=== PATIENT | female | born 2000 ===

== ENCOUNTER 2021-12-27 05:16 | Emergency (ER) | payer SELFPAY ==
--- NOTE | 2021-12-27 05:36 | ED GU-Female ---
General Chief Complaint: Abdominal/GI Problems Stated Complaint: 7 WKS PREG,VAG BLEEDING,ABD PAIN Nursing Triage Note: TO ED VIA [facility] FROM [facility] ER TRANSFER FOR ULTRASOUND. PT IS APPROX 7 WEEKS AND WAS EXPERIENCING VAGINAL BLEEDING AND PAIN. LMP WAS THE FIRST WEEK OF OCTOBER. PAIN STARTED LAST NIGHT APPROX 0030. Source: patient (VIA LANGUAGE LINE TECH BRAZER TESTER), translator/interpreter (KRUNAL MONIQUE DO) History of Present Illness Date Seen by Provider: Dec 27, 2021 Time Seen by Provider: 05:17 Initial Comments PT ARRIVES VIA [facility] EMS IN TRANSFER FROM [facility] ER PT IS APPROXIMATELY 7 WEEKS --LMP FIRST WEEK OF OCTOBER HAD + TEST 4 WEEKS AGO. BEGAN HAVING SOME BLEEDING 1 WEEK AGO, AND WAS SEEN AT [facility] THIS PAST WEEK AND DX WITH UTI. REPORTEDLY HAS A FIRST OB APPOINTMENT AT [facility] THIS MONDAY. PT BEGAN HAVING SEVERE PAIN AND HEAVY BLEEDING WITH CLOTS TONIGHT AROUND 0030 AND WENT TO [facility] ER. SENT HERE FOR ULTRASOUND, THEY DO NOT HAVE ULTRASOUND AVAILABILITY AT THIS TIME. BP THERE WAS IN 70'S TO 90'S SYSTOLIC. PT WAS GIVEN IV FLUIDS AND FENTANYL FOR PAIN ON ARRIVAL, BP IS 106/60, HR 86, O2 SAT 98% ON ROOM AIR. PAIN IS IMPROVED AT THIS TIME. PELVIC EXAM WAS DONE BY ER PHYSICIAN AT [facility] AND WAS REPORTED THAT THERE WAS A LARGE AMOUNT OF CLOTS ON EXAM. VERBAL REPORT OF QUANT B-HCG DONE THERE WAS 12,444 PT IS AB 0 NO CHRONIC MEDICAL PROBLEMS NO PRIOR SURGERIES PCP: [facility] (KRUNAL MONIQUE DO) Allergies and Home Medications Allergies Coded Allergies: No Known Drug Allergies (Unverified , 12/27/21) Patient Home Medication List Home Medication List Reviewed: Yes (KRUNAL MONIQUE DO) Ondansetron (Ondansetron Odt) 4 Mg Tab.rapdis, 4 MG PO Q8H PRN for nausea Prescribed by: LEANN BERNSTEIN on 12/27/21 0631 Review of Systems Review of Systems Constitutional: no symptoms reported Respiratory: no symptoms reported Cardiovascular: no symptoms reported Gastrointestinal: see HPI Genitourinary: see HPI : Yes LMP: Oct 26, 2021 Musculoskeletal: no symptoms reported Skin: no symptoms reported Psychiatric/Neurological: No Symptoms Reported Endocrine: No Symptoms Reported Hematologic/Lymphatic: No Symptoms Reported (KRUNAL MONIQUE DO) Past Agpired-Vtoffk-Whwxqo Hx Patient Social History Tobacco Use?: No Substance use?: No Alcohol Use?: No (KRUNAL MONIQUE DO) Past Medical History Surgeries: No Respiratory: No Cardiac: No Neurological: No : Yes Last Menstrual Period: Oct 26, 2021 Hx : 2 Hx Para: 1 Hx Total # of Abortions (Sp): 0 Reproductive Disorders: No Genitourinary: No Gastrointestinal: No Musculoskeletal: No Endocrine: No HEENT: No Cancer: No Psychosocial: No Integumentary: No Blood Disorders: No (KRUNAL MONIQUE DO) Physical Exam Vital Signs Vital Signs - First Documented (LEANN BERNSTEIN MD) Vital Signs Capillary Refill : Less Than 3 Seconds (KRUNAL MONIQUE DO) Height, Weight, BMI Height: '" Weight: lbs. oz. kg; BMI Method: General Appearance: WD/WN, no apparent distress, thin, other (DOES NOT APPEAR TO BE IN ANY DISCOMFORT OR DISTRESS AT THIS TIME.) Cardiovascular: regular rate, rhythm, no murmur Respiratory: normal breath sounds, no respiratory distress, no accessory muscle use Gastrointestinal: soft Back: no CVA tenderness Extremities: normal inspection, normal capillary refill Neurologic/Psychiatric: no motor/sensory deficits, alert, normal mood/affect, oriented x 3 Skin: normal color (PT IS ) (KRUNAL MONIQUE DO) General Appearance: WD/WN, no apparent distress Gastrointestinal: normal bowel sounds, soft, tenderness (minimal suprapubic tenderness) Pelvic: normal external exam Extremities: normal range of motion, normal inspection, normal capillary refill Neurologic/Psychiatric: alert, normal mood/affect, oriented x 3, other (tearful and upset when advised of ultrasound findings) (LEANN BERNSTEIN MD) Progress/Results/Core Measures Suspected Sepsis SIRS Temperature: Pulse: 82 Respiratory Rate: 16 Laboratory Tests 12/27/21 05:30: White Blood Count 12.0H Blood Pressure 106 /60 Mean: 75 Laboratory Tests 12/27/21 05:30: Platelet Count 193 (KRUNAL MONIQUE DO) Results/Orders Lab Results Laboratory Tests Test 12/27/21 05:30 12/27/21 06:05 12/27/21 06:39 Range/Units White Blood Count 12.0 H 4.3-11.0 10^3/uL Red Blood Count 3.95 3.80-5.11 10^6/uL Hemoglobin 12.3 11.5-16.0 g/dL Hematocrit 36 35-52 % Mean Corpuscular Volume 91 80-99 fL Mean Corpuscular Hemoglobin 31 25-34 pg Mean Corpuscular Hemoglobin Concent 34 32-36 g/dL Red Cell Distribution Width 12.7 10.0-14.5 % Platelet Count 193 130-400 10^3/uL Mean Platelet Volume 10.0 9.0-12.2 fL Human Chorionic Gonadotropin, Quant 18720 H <5 MIU/ML Urine Color YELLOW Urine Clarity CLEAR Urine pH 7.0 5-9 Urine Specific [place] 1.010 L 1.016-1.022 Urine Protein NEGATIVE NEGATIVE Urine Glucose (UA) NEGATIVE NEGATIVE Urine Ketones NEGATIVE NEGATIVE Urine Nitrite NEGATIVE NEGATIVE Urine Bilirubin NEGATIVE NEGATIVE Urine Urobilinogen 0.2 < = 1.0 MG/DL Urine Leukocyte Esterase NEGATIVE NEGATIVE Urine RBC (Auto) NEGATIVE NEGATIVE Urine RBC NONE /HPF Urine WBC NONE /HPF Urine Squamous Epithelial Cells 0-2 /HPF Urine Crystals NONE /LPF Urine Bacteria NEGATIVE /HPF Urine Casts NONE /LPF Urine Mucus NEGATIVE /LPF Urine Culture Indicated NO (LEANN BERNSTEIN MD) My Orders Orders - LEANN BERNSTEIN MD Ondansetron Injection (Zofran Injectio (12/27/21 06:30) Orthostatic Vital Signs (Adult (12/27/21 06:22) Ua Culture If Indicated (12/27/21 06:40) Straight Cath For Spec.-Adult (12/27/21 06:42) (LEANN BERNSTEIN MD) Medications Given in ED Current Medications Medications Dose Ordered Sig/Juan Route Start Time Stop Time Status Last Admin Dose Admin Ondansetron HCl 4 mg ONCE ONCE IVP 12/27/21 06:30 12/27/21 06:31 DC 12/27/21 06:26 4 MG (LEANN BERNSTEIN MD) Vital Signs/I&O 12/27/21 12/27/21 12/27/21 05:20 05:20 06:26 Temp 36.7 Pulse 82 75 77 73 Resp 16 B/P (MAP) 106/60 (75) 97/60 (72) 98/59 (72) 95/64 (74) Pulse Ox 97 O2 Delivery Room Air Room Air (LEANN BERNSTEIN MD) Vital Signs/I&O Capillary Refill : Less Than 3 Seconds (KRUNAL MONIQUE DO) Blood Pressure Mean: 75 Progress Note : Progress Note KNOCKUP WORKER IS HERE ON PT'S ARRIVAL, AND PT IMMEDIATELY TAKEN TO ULTRASOUND. BLOOD TYPE O+ 0600--CARE TURNED OVER TO DR. BERNSTEIN, LAB AND ULTRASOUND RESULTS PENDING. (KRUNAL MONIQUE DO) Progress Note : Time: 06:40 Progress Note Patient care assumed at shift change. Patient is resting comfortably, rates her pain at about a "1". printer repair technician communicated with myself and Dr. Herrera noted that she did not see any viable intrauterine . She saw significant amount of debris in the cervix. No free fluid in the pelvis. Adnexa are clear, no masses or suspicion for ectopic . Patent flow to the ovaries bilaterally. Patient does complain of a little nausea. Straight cath urine is obtained. CBC is reviewed and unremarkable. Awaiting final radiology read. We will have the patient follow-up with a repeat quantitative hCG in 2 days and with her costume mistress/OB. (LEANN BERNSTEIN MD) Diagnostic Imaging Diagonstic Imaging: Ultrasound Plain Films/CT/US/NM/MRI: pelvis Comments [facility] [place] NAME: PALOMA BOOKER [employer] REC#: [id number] PT STATUS: REG ER : 2000 PHYSICIAN: KRUNAL MONIQUE DO ADMIT DATE: 12/27/21/ER Draft Date of Exam:12/27/21 US OB<14 WKS SNGLE W/TRANSVAG INDICATION: Early , vaginal bleeding, ectopic pelvic pain. COMPARISON: None. FINDINGS: Transpelvic transvaginal ultrasound images were obtained. There is no visible formed intra or extrauterine gestational sac. There is debris material within the endometrial canal within the endocervix. The ovaries and adnexa are normal. There was no free fluid. No ovarian torsion or mass is seen. IMPRESSION: No identifiable intrauterine or extrauterine gestation. There is fluid and debris within the endocervical canal. Follow-up imaging with serial hCGs are recommended. Dictated on workstation # [id number] Dict: 12/27/2137 Trans: 12/27/21 0653 [facility] [id number] Interpreted by: SOPHIA MCHUGH Electronically signed by: (LEANN BERNSTEIN MD) Departure Impression Primary Impression: Miscarriage Disposition: 01 HOME, SELF-CARE Condition: Stable Departure-Patient Inst. Decision time for Depature: 06:42 (LEANN BERNSTEIN MD) Referrals: NO,LOCAL PHYSICIAN (PCP/Family) Primary Care Physician Patient Instructions: Loss (Miscarriage) ED Add. Discharge Instructions: You will need a repeat blood test on your hormone level in 2 days. You will need to see your OB doctor after that. I have given you an out patient order form to get this done here. Or you can call your OB doctor's office to have them order it in [place]. You can take over the counter Tylenol extra strength, 2 pills every 6 hours for pain and cramping. Nausea medications, Ondansetron 4mg, every 8 hours as needed for nausea. Come back to the Emergency Department for fever, worse pain, worse bleeding. Continue to take your vitamins. Necesitar repetir un anlisis de nilay en martinez nivel de hormona del embarazo en 2 saleh. Tendr que vaughn a martinez mdico obstetra despus de eso. Le he dado un formulario de pedido de pacientes para hacer esto aqu. O puede llamar al consultorio de martinez mdico obstetra para que lo ordenen en [place]. Puede amber Tylenol de venta samaria fuerza extra, 2 pldoras cada 6 horas para el dolor y los calambres. Medicamentos para las nuseas, Ondansetron 4mg, cada 8 horas segn sea necesario para las nuseas. Regrese al Departamento de Emergencias por fiebre, peor dolor, peor sangrado. Contine tomando jovani vitaminas prenatales. Scripts Ondansetron (Ondansetron Odt) 4 Mg Tab.rapdis 4 MG PO Q8H PRN for nausea, #15 TAB Prov: LEANN BERNSTEIN MD 12/27/21 KRUNAL MONIQUE DO Dec 27, 2021 05:36 LEANN BERNSTEIN MD Dec 27, 2021 06:47
[2021-12-27 05:39] LABS: HEMATOCRIT 36 % (35-52); HEMOGLOBIN 12.3 g/dL (11.5-16.0); MEAN CORPUSCULAR HEMOGLOBIN 31 pg (25-34); MEAN CORPUSCULAR HGB CONC 34 g/dL (32-36); MEAN CORPUSCULAR VOLUME 91 fL (80-99); PLATELET COUNT 193 10^3/uL (130-400)
[2021-12-27 06:26] VITALS: BP_SYST 95; BP_SYST 97; BP_SYST 98; BP_DIAS 59; BP_DIAS 60; BP_DIAS 64
[2021-12-27] MEDS ORDERED: ONDANSETRON 4 MG/2 ML (SDV) Z0FRAN IVP ONE (06:30)
[2021-12-27 06:46] LABS: BILIRUBIN,URINE NEGATIVE (NEGATIVE); CLARITY,URINE CLEAR; COLOR,URINE YELLOW; GLUCOSE, URINE (UA) NEGATIVE (NEGATIVE); KETONES,URINE NEGATIVE (NEGATIVE); LEUKOCYTE ESTERASE ,URINE NEGATIVE (NEGATIVE); NITRITE,URINE NEGATIVE (NEGATIVE); PROTEIN,URINE NEGATIVE (NEGATIVE)
[2021-12-27] MEDS ORDERED: ONDA4TAB11 PO (06:48)
--- NOTE | 2021-12-27 06:54 | Diagnostic Imaging Report ---
INDICATION: Early , vaginal bleeding, ectopic pelvic pain. COMPARISON: None. FINDINGS: Transpelvic transvaginal ultrasound images were obtained. There is no visible formed intra or extrauterine gestational sac. There is debris material within the endometrial canal within the endocervix. The ovaries and adnexa are normal. There was no free fluid. No ovarian torsion or mass is seen. IMPRESSION: No identifiable intrauterine or extrauterine gestation. There is fluid and debris within the endocervical canal. Follow-up imaging with serial hCGs are recommended. Dictated by: Dictated on workstation # [id number]
[2021-12-27 06:55] LABS: BACTERIA,URINE NEGATIVE /HPF; SQUAMOUS EPITHELIAL CELL,UR 0-2 /HPF
[2021-12-27 08:09] VITALS: BP 105/77
== END 2021-12-27 08:07 | disposition home or self-care (01) ==
LOC: ER 05:20
DX: O03.9 Complete or unspecified spontaneous abortion without complication (principal)
CPT/HCPCS: 36415; 51701; 76801; 76817; 81000; 84702; 85027; 86900; 86901

== ENCOUNTER → 2021-12-29 | Outpatient (CLI) | payer SELFPAY ==
[~2021-12-29] MED LIST: ONDA4TAB11 PO
== END ==
LOC: LAB 11:10
PROVIDERS: ATTEND Emergency Medicine
DX: O03.9 Complete or unspecified spontaneous abortion without complication (principal)
CPT/HCPCS: 36415; 84702

== ENCOUNTER 2023-03-02 09:20 | Emergency (ER) | payer SELFPAY ==
[2023-03-02 10:19] LABS: BASOPHILS % (AUTO) 1 % (0-10); EOSINOPHILS # (AUTO) 0.1 10^3/uL (0.0-0.3); EOSINOPHILS % (AUTO) 2 % (0-10); HEMATOCRIT 35 % (35-52); HEMOGLOBIN 11.9 g/dL (11.5-16.0); LYMPHOCYTES # (AUTO) 1.5 10^3/uL (1.0-4.0); LYMPHOCYTES % (AUTO) 26 % (12-44); MEAN CORPUSCULAR HEMOGLOBIN 31 pg (25-34); MEAN CORPUSCULAR HGB CONC 34 g/dL (32-36); MEAN CORPUSCULAR VOLUME 90 fL (80-99); MEAN PLATELET VOLUME 9.8 fL (9.0-12.2); MONOCYTES # (AUTO) 0.5 10^3/uL (0.0-1.0); MONOCYTES % (AUTO) 9 % (0-12); NEUTROPHILS # (AUTO) 3.6 10^3/uL (1.8-7.8); NEUTROPHILS % (AUTO) 62 % (42-75); PLATELET COUNT 236 10^3/uL (130-400); WHITE BLOOD COUNT 5.7 10^3/uL (4.3-11.0)
[2023-03-02 10:23] LABS: BILIRUBIN,URINE NEGATIVE (NEGATIVE); CLARITY,URINE CLEAR; COLOR,URINE YELLOW; GLUCOSE, URINE (UA) NEGATIVE (NEGATIVE); KETONES,URINE 2+ (NEGATIVE); LEUKOCYTE ESTERASE ,URINE NEGATIVE (NEGATIVE); NITRITE,URINE NEGATIVE (NEGATIVE); PROTEIN,URINE NEGATIVE (NEGATIVE)
[2023-03-02 10:36] LABS: BACTERIA,URINE TRACE /HPF; SQUAMOUS EPITHELIAL CELL,UR 0-2 /HPF
--- NOTE | 2023-03-02 11:22 | ED GU-Female ---
General Chief Complaint: OB < 20 WEEKS Stated Complaint: 3 WEEKS | ABD PAIN AND DISCHARGE Nursing Triage Note: PT AMB TO RM 8 WITH FAMILY WITH C/O ABD PAIN SINCE YESTERDAY, BROWN VAGINAL DISCHARGE AND A + TEST 3 DAYS AGO. PT RECENTLY HAD NEXPLANON IMPLANT REMOVED Source: patient, aquatic scientist Exam Limitations: language barrier (KRISTY RINCON MD) History of Present Illness Date Seen by Provider: Mar 02, 2023 Time Seen by Provider: 09:44 Initial Comments This 22-year-old young lady presents to the emergency room with complaints of pelvic pain and brownish vaginal discharge in early . She had implanted control removed about 3 weeks ago. She reports pain and discharge started early yesterday morning. She took 5 home tests 3 days ago which were all positive. Blood type was available in chart as O positive. Patient has a pending appointment in [place] on March 21 to establish care. She reports dysuria and pain with walking. (KRISTY RINCON MD) Allergies and Home Medications Allergies Coded Allergies: No Known Drug Allergies (Unverified , 12/27/21) Patient Home Medication List Home Medication List Reviewed: Yes (KRISTY RINCON MD) Clindamycin HCl (Clindamycin HCl) 300 Mg Capsule, 300 MG PO BID Prescribed by: KRISTY FOREMAN on 03/02/23 1355 Ondansetron (Ondansetron Odt) 4 Mg Tab.rapdis, 4 MG PO Q8H PRN for nausea Prescribed by: LEANN BERNSTEIN on 12/27/21 0648 Review of Systems Review of Systems Constitutional: no symptoms reported EENTM: no symptoms reported Respiratory: no symptoms reported Cardiovascular: no symptoms reported Gastrointestinal: see HPI Genitourinary: see HPI : Yes LMP: February 06, 2023 Musculoskeletal: no symptoms reported Skin: no symptoms reported Psychiatric/Neurological: No Symptoms Reported Endocrine: No Symptoms Reported (KRISTY RINCON MD) Past Nhzalrf-Pkatox-Jzkxom Hx Patient Social History Tobacco Use?: No Use of E-Cig and/or Vaping dev: No Substance use?: No Alcohol Use?: No Pt feels they are or have been: No (KRISTY RINCON MD) Past Medical History Surgery/Hospitalization HX: MISCAIRAGE Surgeries: No Respiratory: No Cardiac: No Neurological: No : Yes Last Menstrual Period: February 06, 2023 Reproductive Disorders: No Genitourinary: No Gastrointestinal: No Musculoskeletal: No Endocrine: No HEENT: No Cancer: No Psychosocial: No Integumentary: No Blood Disorders: No (KRISTY RINCON MD) Physical Exam Vital Signs Vital Signs - First Documented 03/02/23 09:42 Temp 36.3 Pulse 60 Resp 14 B/P (MAP) 99/67 (78) Pulse Ox 100 O2 Delivery Room Air (HARRIET LEÓN APRN) Vital Signs Capillary Refill : (KRISTY RINCON MD) Height, Weight, BMI Height: '" Weight: lbs. oz. kg; BMI Method: General Appearance: WD/WN, no apparent distress HEENT: normal ENT inspection Neck: normal inspection Cardiovascular: regular rate, rhythm, no edema, no murmur Respiratory: lungs clear, normal breath sounds, no accessory muscle use Gastrointestinal: normal bowel sounds, soft, tenderness (Across the pelvis) Extremities: normal inspection, no pedal edema Neurologic/Psychiatric: no motor/sensory deficits, alert, normal mood/affect, oriented x 3 Skin: normal color, warm/dry (KRISTY RINCON MD) Pelvic: normal external exam, normal adnexa, no masses, discharge (Mild amount of light brown discharge), tender w/ cervical motion (mild); No vaginal bleeding (HARRIET LEÓN APRN) Progress/Results/Core Measures Suspected Sepsis SIRS Temperature: Pulse: 60 Respiratory Rate: 14 Laboratory Tests 03/02/23 10:11: White Blood Count 5.7 Blood Pressure 99 /67 Mean: 78 Laboratory Tests 03/02/23 10:11: Platelet Count 236 (KRISTY RINCON MD) Results/Orders Lab Results (HARRIET LEÓN APRN) Vital Signs/I&O (HARRIET LEÓN APRN) Vital Signs/I&O Capillary Refill : (KRISTY RINCON MD) Blood Pressure Mean: 78 Progress Note #1: Time: 12:45 Progress Note Patient was interviewed and examined using the video aquatic scientist. Labs were obtained. CBC was unremarkable. Quant hCG was 46,000. Urinalysis had 2+ ketones suggesting some degree of poor hydration. Urine was otherwise unremarkable. Labs were reviewed and interpreted by me in their entirety. Ultrasound was obtained after review of labs. I discussed findings with the event attendant who indicated a live fetus at about 6 weeks was observed with a probable subchorionic bleed. Radiologist's interpretation is pending. The ultrasound findings did not necessarily explain her pain. Pelvic exam was therefore performed by Harriet León NP. She noted some brown blood in the vaginal canal without any active bleeding or signs of inflammation. There was some tenderness noted on bimanual exam. Wet prep slide interpretation is pending. Progress Note #2: Progress Note Preliminary vaginal micro results were reviewed. There were some white blood cells and clue cells. No trichomonas was identified. Patient is being treated for bacterial vaginosis with clindamycin. Discharge instructions were reviewed with the patient using the [place] video aquatic scientist. All questions were answered. Patient was discharged in stable condition. See discharge instructions for further discussion. Discharge handouts were provided in [place]. (KRISTY RINCON MD) Diagnostic Imaging Diagonstic Imaging: Ultrasound Plain Films/CT/US/NM/MRI: pelvis Comments NAME: [facility] REC#: [id number] PT STATUS: REG ER : 2000 PHYSICIAN: KRISTY RINCON MD ADMIT DATE: 03/02/23/ER Draft Date of Exam:03/02/23 US OB<14 WKS SNGLE W/TRANSVAG US OB<14 WKS SNGLE W/TRANSVAG INDICATION: Pelvic pain and vaginal bleeding COMPARISON: 12/27/2021 TECHNIQUE: Transabdominal and transvaginal sonographic imaging of the pelvis. FINDINGS: There is a gestational sac with a normal ovoid morphology. Within the gestational sac, there is an embryo and a yolk sac. heart rate is detected at 123 bpm. Based on crown-rump length of 6.3 mm, the estimated gestational age is 6 weeks and 4 days. There is mixed echogenicity hemorrhage surrounding the gestational sac encompassing less than 20%. The largest pocket of subchorionic hemorrhage measures 1.4 x 1.1 cm in thickness. Right ovary is identified and normal. Right adnexa imaged but the ovary cannot be seen due to surrounding bowel gas. No free pelvic fluid. IMPRESSION: 1. Single live intrauterine with an estimated gestational age of 6 weeks and 4 days. 2. A small subchorionic hemorrhage is present. Dictated on workstation # [id number] Dict: 03/02/23 1251 Trans: 03/02/[address] [facility] [id number] Interpreted by: SANDRO OCAMPO MD (KRISTY RINCON MD) Departure Impression Primary Impression: Pelvic pain affecting in first trimester, antepartum Additional Impressions: Vaginal bleeding affecting early Bacterial vaginosis Subchorionic hemorrhage Qualified Codes: O41.8X10 - Other specified disorders of amniotic fluid and membranes, first trimester, not applicable or unspecified; O46.8X1 - Other antepartum hemorrhage, first trimester Disposition: 01 HOME, SELF-CARE Condition: Stable Departure-Patient Inst. Decision time for Depature: 13:52 (KRISTY RINCON MD) Referrals: NO,LOCAL PHYSICIAN (PCP/Family) Primary Care Physician Patient Instructions: Bacterial Vaginosis (DC), Bleeding in Early ED, Subchorionic Bleeding Add. Discharge Instructions: Complete to the clindamycin antibiotic as prescribed. You may take Tylenol (acetaminophen) up to 650 mg every 6 hours as needed for pain. Observe vaginal rest until you can discuss further with your plant operator control room operator at your appointment. This means no sexual intercourse or anything else placed in the vagina. Basic activities of daily living may be continued. However, avoid extremely strenuous activities or heavy lifting until you discuss further with your plant operator control room operator. Return to the emergency room if you have worsening symptoms despite following these instructions. All discharge instructions reviewed with patient and/or family. Voiced understanding. Scripts Clindamycin HCl (Clindamycin HCl) 300 Mg Capsule 300 MG PO BID, #14 CAP Prov: KRISTY RINCON MD 03/02/23 Work/School Note: Work Release Form Date Seen in the Emergency Department: Mar 02, 2023 Return to Work: Mar 03, 2023 Other Restrictions Listed Below: No intense labor or lifting over 20 lbs until cleared by plant operator control room operator. KRISTY RINCON MD Mar 02, 2023 11:21 HARRIET LEÓN APRN Mar 02, 2023 12:41
--- NOTE | 2023-03-02 12:59 | Diagnostic Imaging Report ---
US OB<14 WKS SNGLE W/TRANSVAG INDICATION: Pelvic pain and vaginal bleeding COMPARISON: 12/27/2021 TECHNIQUE: Transabdominal and transvaginal sonographic imaging of the pelvis. FINDINGS: There is a gestational sac with a normal ovoid morphology. Within the gestational sac, there is an embryo and a yolk sac. heart rate is detected at 123 bpm. Based on crown-rump length of 6.3 mm, the estimated gestational age is 6 weeks and 4 days. There is mixed echogenicity hemorrhage surrounding the gestational sac encompassing less than 20%. The largest pocket of subchorionic hemorrhage measures 1.4 x 1.1 cm in thickness. Right ovary is identified and normal. Right adnexa imaged but the ovary cannot be seen due to surrounding bowel gas. No free pelvic fluid. IMPRESSION: 1. Single live intrauterine with an estimated gestational age of 6 weeks and 4 days. 2. A small subchorionic hemorrhage is present. Dictated by: Dictated on workstation # [id number]
[2023-03-02] MEDS ORDERED: CLIN-144 PO (13:55)
[2023-03-02 14:08] VITALS: BP 93/67
== END 2023-03-02 14:18 | disposition home or self-care (01) ==
LOC: EDUNIT# 09:20 → ER 09:22
DX: O46.8X1 Other antepartum hemorrhage, first trimester (principal); O23.591 Infection of other part of genital tract in pregnancy, first trimester; B96.89 Other specified bacterial agents as the cause of diseases classified elsewhere; Z3A.01 Less than 8 weeks gestation of pregnancy
CPT/HCPCS: 36415; 76801; 76817; 81000; 84702; 85025; 86141; 87070; 87205; 87210; 87491; 87591